=== PATIENT | male | born 1980 | race Caucasian/White ===

== ENCOUNTER 2016-12-12 13:19 | Emergency (ER) | payer SELFPAY ==
[~2016-12-12] VITALS: Ht 175.3 cm; Wt 75.0 kg
[2016-12-12 13:21] VITALS: BP 134/77; PULSE 94; RESP 16; TEMP 98; O2SAT 97
[2016-12-12] MEDS ORDERED: VIST25CA PO (16:09)
[2016-12-12] MEDS ORDERED: BUSP10TA PO (16:09)
[2016-12-12] MEDS ORDERED: BACT800T5 PO (16:24)
[2016-12-12] MEDS ORDERED: CEPH-460 PO (16:24)
[2016-12-12] MEDS ORDERED: IBUP800T23 PO (16:24)
--- NOTE | 2016-12-12 16:25 | PD ---
HPI Chief Complaint: Skin Problem Time Seen by Provider: 16:18 Travel History International Travel<30 days: No Contact w/Intl Traveler<30days: No Traveled to known affect area: No History of Present Illness HPI Patient is a 36-year-old male presenting to emergency evaluation of the left toe skin infection. Patient states started 5 days ago as a normal blister and then 3-4 days ago it started getting red around it and more painful. Patient states she's been cleaning it with peroxide and warm water. He denies any fever , chills. He states his pain is a 5 out of 10 at times. He has no significant past medical history. PFSH Past Medical History Anxiety: Yes Tetanus Vaccination: < 5 Years Past Surgical History Surgical History: No Previous Surgery Social History Alcohol Use: No Tobacco Use: Yes Substance Use: No Allergies-Medications (Allergen,Severity, Reaction): Coded Allergies: No Known Allergies (Unverified , 12/12/16) Reported Meds & Prescriptions Reported Meds & Active Scripts Active Reported Buspirone (Buspirone HCl) 10 Mg Tab 10 Mg PO BID Vistaril (Hydroxyzine Pamoate) 25 Mg Cap 25 Mg PO QID Review of Systems Except as stated in HPI: all other systems reviewed are Neg General / Constitutional: No: Fever, Chills Musculoskeletal: Positive: Pain Skin: Positive Change in Pigmentation, Positive Lesions Physical Exam Narrative GENERAL: Well-nourished, well-developed patient. SKIN: Warm and dry. Left first toe on the dorsal aspect has a 6 mm area of superficial ulceration with a scant amount of purulent drainage. Mildly erythematous and edematous surrounding the ulceration. Positive pedal pulses, brisk thousand 3 second capillary refill. HEAD: Normocephalic. EYES: No scleral icterus. No injection or drainage. NECK: Supple, trachea midline. No JVD or lymphadenopathy. CARDIOVASCULAR: Regular rate and rhythm without murmurs, gallops, or rubs. RESPIRATORY: Breath sounds equal bilaterally. No accessory muscle use. GASTROINTESTINAL: Abdomen soft, non-tender, nondistended. MUSCULOSKELETAL: No cyanosis, or edema. BACK: Nontender without obvious deformity. No CVA tenderness. Data Data Last Documented VS Vital Signs Date Time Temp Pulse Resp B/P Pulse Ox O2 Delivery O2 Flow Rate FiO2 12/12/16 13:21 98.0 94 16 134/77 97 MDM Medical Decision Making Medical Screen Exam Complete: Yes Emergency Medical Condition: Yes Interpretation(s) Vital Signs Date Time Temp Pulse Resp B/P Pulse Ox O2 Delivery O2 Flow Rate FiO2 12/12/16 13:21 98.0 94 16 134/77 97 Differential Diagnosis Cellulitis versus osteomyelitis versus abscess versus other Narrative Course Patient is a 36-year-old male presenting to emergency room for evaluation of a superficial ulceration to the left toe that started as a blister. Patient has stable vital signs, he is afebrile. Wound culture obtained. Patient be placed on oral antibiotic therapy at home. He was encouraged to avoid continued use of peroxide to the wound. He was advised only clean it with soap and water, apply topical antibiotic ointment and a nonocclusive dressing. He was advised to return to emergency department in 48 hours if wound did not start to resolve or sooner if it worsen despite antibiotic therapy. Patient verbalized understanding of these instructions. Patient is stable for discharge. Diagnosis Primary Impression: Cellulitis and abscess of toe, unspecified Referrals: Primary Care Physician Patient Instructions: Cellulitis (ED), General Instructions Additional Instructions: Complete full course of antibodies as directed He may do warm water soaks, apply topical antibiotic ointment and nonocclusive dressing. Return to emergency department immediately for any new or worsening symptoms Follow-up with your primary doctor Med/Other Pt SpecificInfo: Prescription(s) given Scripts Ibuprofen 800 Mg [id number] Mg PO Q8H PRN (Pain/Inflammation) #60 TAB Ref 0 Prov:Betzaida Singletary 12/12/16 Cephalexin (Keflex)500 Mg [id number] Mg PO Q12H 10 Days Ref 0 Prov:Betzaida Singletary 12/12/16 Sulfamethoxazole-Trimethoprim (Bactrim DS)800-160 Mg Tab1 Tab PO BID #20 TAB Ref 0 Prov:Betzaida Singletary 12/12/16 Disposition: 01 DISCHARGE HOME Condition: Stable Betzaida Singletary Dec 12, 2016 16:24
[2016-12-12 16:39] VITALS: BP 130/74
== END 2016-12-12 16:53 | disposition home or self-care (01) ==
LOC: NETRI 13:19
DX: L03.032 Cellulitis of left toe (principal); B95.62 Methicillin resistant Staphylococcus aureus infection as the cause of diseases classified elsewhere
CPT/HCPCS: 86403; 87070; 87186; 99282